=== PATIENT | female | born 1965 | race African-American/Black ===

== ENCOUNTER 2023-08-26 12:28 | Outpatient (OUT) | payer BC, OTHER, SELFPAY ==
--- NOTE | 2023-08-26 12:36 | XR_ITS ---
The [address] [address] Patient Name: JASPER INMAN MRN: [id number] date: 1965 Sex: F Assigned Patient Location: [facility] Current Patient Location: [facility] Accession/Order Number: [id number] Exam Date: 08/26/2023 12:40 Report Date: 08/26/2023 12:54 At the request of: NON-STAFF PHYSICIAN Procedure: XR chest 2V EXAM: XR chest 2V HISTORY: cough with sputum production; R09.3 COMPARISON: None. TECHNIQUE: PA and lateral views of the chest. FINDINGS: The cardiomediastinal silhouette is normal. No focal consolidation is identified. There is no pneumothorax. No pleural effusion is noted. The osseous structures are intact. XR/XR chest 2V IMPRESSION: No acute cardiopulmonary process. Electronically authenticated by: YADIRA CAMERON Date: 08/26/2023 12:54
== END 2023-08-26 12:29 | disposition home or self-care (01) ==
PROVIDERS: PCP Family Medicine
DX: R09.3 Abnormal sputum (principal)
CPT/HCPCS: 71046